=== PATIENT | male | born 1995 | race Caucasian/White ===

== ENCOUNTER 2018-02-05 23:28 | Emergency (ER) | payer SELFPAY ==
[~2018-02-05] VITALS: Ht 162.6 cm; Wt 75.1 kg
[2018-02-05 23:31] VITALS: Ht 162.6 cm; Wt 75.1 kg
[2018-02-06 00:49] VITALS: BP 124/82
== END 2018-02-06 00:49 | disposition home or self-care (01) ==
LOC: ED 23:28
DX: R07.9 Chest pain, unspecified (principal); R00.2 Palpitations; R06.02 Shortness of breath; F41.9 Anxiety disorder, unspecified
CPT/HCPCS: J1885; Q0092